=== PATIENT | female | born 1955 | race Caucasian/White ===

== ENCOUNTER 2018-09-22 14:12 | Emergency (ER) | payer SELFPAY ==
[2018-09-22] MEDS ORDERED: Ondansetron 4 MG/2 ML SDV IVPUSH ONE (14:42)
[2018-09-22] MEDS ORDERED: Sodium Chloride 0.9% 10 ML Syringe FLUSH PRN (14:42)
[2018-09-22] MEDS ORDERED: Sodium Chloride 0.9% 1,000 ML IV ONE ×2 (14:42→15:48)
--- NOTE | 2018-09-22 16:06 | EDM.PDOC ---
ED HPI GENERAL MEDICAL PROBLEM - General Chief Complaint: Gastrointestinal Problem Stated Complaint: CHEST PAIN Time Seen by Provider: 09/22/18 14:15 Source of Information: Reports: Patient, Family (daughter) History Limitations: Reports: Language Barrier - History of Present Illness INITIAL COMMENTS - FREE TEXT/NARRATIVE: 61-year-old female presents for evaluation and treatment of increased urinary frequency, nausea, dizziness and diarrhea. Patient does not speak any Serbian, a language barrier is present. Translation is obtained from her daughter as well as the translation service. Patient reports that she's been experiencing what she describes as air to the left ear and dizziness for several months. She has never been evaluated for this. She states she was prescribed antibiotics for the ear in [place] in April. She reports she's had multiple ear infections as a child. Denies any ear pain or headaches. Patient reports that she's been experiencing increased urinary frequency as of late. She is concerned she may have a urinary tract infection. Denies any dysuria. Patient also reports that she is also nauseated and has diarrhea. Estimates she' s had about 5 episodes of diarrhea per day. No vomiting. No chest pain, shortness of breath and only minor abdominal discomfort. She denies any blood in her stool.n someion. Previous abdominal surgeries include a cholecystectom and hysterectomy. Recent travel includes a have been in [place] recently. - Related Data Allergies Allergy/AdvReac Type Severity Reaction Status Date / Time No Known Allergies Allergy Verified 09/22/18 14:27 Home Meds: Home Meds Acido. 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 Denies: Ear Pain Respiratory: Denies: Shortness of Breath Cardiovascular: Denies: Chest Pain GI/Abdominal: Reports: Abdominal Pain (minor), Diarrhea, Nausea, Vomiting. Denies: Hematochezia, Melena : Reports: Frequency. Denies: Dysuria Neurological: Reports: Dizziness ED EXAM, GI/ABD - Physical Exam Exam: See Below Exam Limited By: No Limitations General Appearance: Alert, WD/WN, No Apparent Distress Ears: Other (right TM has scarring present; left TM is distorted, no landmarks present, TM is opaque) Nose: Normal Inspection Throat/Mouth: Normal Inspection, Normal Lips, Normal Oropharynx, Normal Voice, No Airway Compromise Respiratory/Chest: No Respiratory Distress, Lungs Clear, Normal Breath Sounds Cardiovascular: Normal Peripheral Pulses, Regular Rate, Rhythm, No Murmur GI/Abdominal Exam: Normal Bowel Sounds, Soft, Non-Tender, Other (scar to the RUQ from prior cholecystectomy) Neurological: Alert, Oriented, Normal Cognition Psychiatric: Normal Affect, Normal Mood Skin Exam: Warm, Dry, Normal Color EKG INTERPRETATION EKG Date: 09/22/18 Time: 14:18 Rhythm: NSR Rate (Beats/Min): 118 [place]: Normal P-Wave: Present QRS: Normal ST-T: Normal QT: Prolonged EKG Interpretation Comments: Sinus tachycardia 118 bpm. Left atrial hypertrophy. Mildly decreased voltage limb leads. QTc minimally prolonged at Qtc 478. Reviewed by myself and Dr. Del Cid. Course - Vital Signs Last Recorded V/S: Last Vital Signs Temp 96.9 F 09/22/18 14:21 Pulse 113 H 09/22/18 14:21 Resp 16 09/22/18 14:21 BP 169/91 H 09/22/18 14:21 Pulse Ox 97 09/22/18 14:21 - Orders/Labs/Meds Labs: Laboratory Tests 09/22/18 09/22/18 09/22/18 Range/Units 14:17 14:17 14:45 WBC 10.05 H (3.98-10.04) K/mm3 RBC 4.61 (3.98-5.22) M/mm3 Hgb 13.4 (11.2-15.7) gm/L Hct 40.8 (34.1-44.9) % MCV 88.5 (79.4-94.8) fl MCH 29.1 (25.6-32.2) pg MCHC 32.8 (32.2-35.5) g/dl RDW Std Deviation 41.1 (36.4-46.3) fL Plt Count 415 H (182-369) K/mm3 MPV 10.0 (9.4-12.3) fl Neut % (Auto) 52.4 (34.0-71.1) % Lymph % (Auto) 36.9 (19.3-51.7) % [place] % (Auto) 7.0 (4.7-12.5) % Eos % (Auto) 3.1 (0.7-5.8) Baso % (Auto) 0.3 (0.1-1.2) % Neut # (Auto) 5.27 (1.56-6.13) K/mm3 Lymph # (Auto) 3.71 (1.18-3.74) K/mm3 [place] # (Auto) 0.70 H (0.24-0.36) K/mm3 Eos # (Auto) 0.31 (0.04-0.36) K/mm3 Baso # (Auto) 0.03 (0.01-0.08) K/mm3 Sodium 141 (136-145) mEq/L Potassium 3.5 (3.5-5.1) mEq/L Chloride 104 (98-107) mEq/L Carbon Dioxide 24 (21-32) mEq/L Anion Gap 16.5 H (5-15) BUN 20 H (7-18) mg/dL Creatinine 0.7 (0.55-1.02) mg/dL Est Cr Clr Drug Dosing 59.09 mL/min Estimated GFR (MDRD) > 60 (>60) mL/min BUN/Creatinine Ratio 28.6 H (14-18) Glucose 129 H (80-115) mg/dL Calcium 10.0 (8.5-10.1) mg/dL Magnesium 1.7 L (1.8-2.4) mg/dl Total Bilirubin 0.3 (0.2-1.0) mg/dL AST 21 (15-37) U/L ALT 29 (14-59) U/L Alkaline Phosphatase 105 (46-116) U/L Total Protein 8.6 H (6.4-8.2) g/dl Albumin 3.9 (3.4-5.0) g/dl Globulin 4.7 gm/dL Albumin/Globulin Ratio 0.8 L (1-2) Urine Color Yellow (Yellow) Urine Appearance Clear (Clear) Urine pH 7.0 (5.0-8.0) Ur Specific [place] 1.020 (1.005-1.030) Urine Protein Trace H (Negative) Urine Glucose (UA) Negative (Negative) Urine Ketones Negative (Negative) Urine Occult Blood 2+ H (Negative) Urine Nitrite Negative (Negative) Urine Bilirubin Negative (Negative) Urine Urobilinogen 0.2 (0.2-1.0) Ur Leukocyte Esterase Trace H (Negative) Urine RBC 5-10 H (0-5) /hpf Urine WBC 0-5 (0-5) /hpf Ur Squamous Epith Cells 0-5 (0-5) /hpf Urine Bacteria Not seen (FEW) /hpf Urine Mucus Not seen (FEW) /hpf Meds: Medications Discontinued Medications Generic Name Dose Route Start Last Admin Trade Name Freq PRN Reason Stop Dose Admin Sodium Chloride 1,000 mls @ 999 mls/hr 09/22/18 14:42 09/22/18 14:57 Normal Saline IV 09/22/18 15:42 999 mls/hr ONETIME ONE Administration Sodium Chloride 1,000 mls @ 999 mls/hr 09/22/18 15:48 09/22/18 16:22 Normal Saline IV 09/22/18 16:48 999 mls/hr ONETIME ONE Administration Ondansetron HCl 4 mg 09/22/18 14:42 09/22/18 14:58 Zofran IVPUSH 09/22/18 14:43 4 mg ONETIME ONE Administration Sodium Chloride 10 ml 09/22/18 14:42 09/22/18 14:58 Saline Flush FLUSH 10 ml ASDIRECTED PRN Administration Keep Vein Open - Radiology Interpretation Free Text/Narrative:: CT temporal bones Technique: Multiple axial sections through the temporal bones were obtained. Reconstructed coronal and sagittal images were reviewed. Findings: Slightly thickened left tympanic membrane is seen. Attic is clear on both sides. Ossicular chain appears symmetric. No abnormal mineralization is seen around the semicircular canals or cochlea. Internal auditory canals is symmetric. Mastoid air cells appear clear. Impression: 1. Mild thickening of the left tympanic membrane most likely due to scar tissue. 2. CT study of the temporal bones is otherwise unremarkable. - Re-Assessments/Exams Free Text/Narrative Re-Assessment/Exam: 09/22/18 17:[address] Del Cid exam the patient's left ear due to questionable scarring vs cholestoma. Recommended CT to further evaluate. Discussed the labs, ekg and imaging with the patient and her daughter. Nausea and diarrhea felt to be viral GI bug. Recommend symptomatic care. Recommended follow-up with ENT for further evaluation of the left ear. No UTI found. Will discharge home, discharge instructions as documented. Departure - Departure Time of Disposition: 17:34 Disposition: Home, Self-Care 01 Condition: Fair Clinical Impression: Dizziness, Gastroenteritis - Discharge Information *PRESCRIPTION DRUG MONITORING PROGRAM REVIEWED*: No *COPY OF PRESCRIPTION DRUG MONITORING REPORT IN PATIENT JORGE ALBERTO: No Prescriptions: Meclizine [Antivert] 25 mg PO TID PRN #20 tab PRN Reason: Dizziness Ondansetron [Zofran ODT] 4 mg PO Q6H PRN #20 tab.dis PRN Reason: Nausea Instructions: Viral Gastroenteritis, Adult, [id number] Referrals: PCP,None [Primary Care Provider] - Alvaro Clements MD [Ordering Only Provider] - Marva Solares PA-C [Physician Director Of Public Relations] - Forms: ED Department Discharge Additional Instructions: Zofran 1 tab sublingual every 6-8 hours as needed for nausea. Make sure you are drinking plenty of fluids. Drink water, Gatorade or Powerade. Recommend a bland diet as tolerated. [place] diet recommendations include bread, rice, bananas, applesauce, toast etc. Meclizine 1 ta 3 times a day as needed for dizziness. Recommend following up with [facility] tro[facility] in [place] for further evaluation of swelling tympanic membrane. Recommend Dr. Clements call [phone] to schedule with him. Expect your symptoms to last the next few days. If they do not improve recommend follow-up with family medicine. Recommend Dr. lee or Deena Celaya at the [facility]. Call [phone] to schedule with one of these providers. Please return to the ER if your symptoms change or worsen.
--- NOTE | 2018-09-22 16:30 | CT ---
CT temporal bones Technique: Multiple axial sections through the temporal bones were obtained. Reconstructed coronal and sagittal images were reviewed. Findings: Slightly thickened left tympanic membrane is seen. Attic is clear on both sides. Ossicular chain appears symmetric. No abnormal mineralization is seen around the semicircular canals or cochlea. Internal auditory canals is symmetric. Mastoid air cells appear clear. Impression: 1. Mild thickening of the left tympanic membrane most likely due to scar tissue. 2. CT study of the temporal bones is otherwise unremarkable. Diagnostic code #3
== END 2018-09-22 18:05 | disposition home or self-care (01) ==
LOC: JD.ED 14:12
DX: K52.9 Noninfective gastroenteritis and colitis, unspecified (principal); R42 Dizziness and giddiness; E11.9 Type 2 diabetes mellitus without complications; I10 Essential (primary) hypertension; Z79.84 Long term (current) use of oral hypoglycemic drugs; Z79.899 Other long term (current) drug therapy
CPT/HCPCS: 36415; 70480; 80053; 81001; 83735; 85025; 93005; 96361; 96374; 99284; J2405; J7040; 70482-26; 93010

== ENCOUNTER 2018-10-25 14:21 | Emergency (ER) | payer MEDICAID, OTHER ==
--- NOTE | 2018-10-25 14:44 | EDM.PDOC ---
ED HPI GENERAL MEDICAL PROBLEM - General Chief Complaint: Eye Problems Stated Complaint: EYE SWOLLEN Time Seen by Provider: 10/25/18 14:40 Source of Information: Reports: Patient, Family (daughter whom acts as the jumpbasting facing baster. 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 There's been no purulent discharge or crusting. She does not speak [place] and her daughter is here to act as an jumpbasting facing baster. Patient hasn't had no previous right eye surgery. She has no glaucoma does not use any drops to the right eye. She has no recent cold or upper respiratory tract infection. No eye trauma. Does wear eyeglasses. She doesn't feel her visual acuity has changed. Feels uncomfortable sensation medial aspect of the right eye. Onset: Gradual (He was mildly erythematous yesterday but much worse today) Onset Date: 10/24/18 Duration: Hour(s):, Getting Worse Location: Reports: Face (Right eye erythema) Quality: Reports: Ache, Burning, Other (No significant pain.) Severity: Mild Improves with: Reports: None Worsens with: Reports: None Context: Reports: Other. 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) (None.) - Related Data Allergies Allergy/AdvReac Type Severity Reaction Status Date / Time No Known Allergies Allergy Verified 10/25/18 14:31 Home Meds: Home Meds Enalapril [Vasotec] 10 mg PO ASDIRECTED 09/22/18 [History] Losartan [Cozaar] 50 mg PO ASDIRECTED 09/22/18 [History] Meclizine [Antivert] 25 mg PO TID PRN #20 tab 09/22/18 [Rx] Ondansetron [Zofran ODT] 4 mg PO Q6H PRN #20 tab.dis 09/22/18 [Rx] hydroCHLOROthiazide [Hydrochlorothiazide] 25 mg PO ASDIRECTED 09/22/18 [History] metFORMIN [Glucophage] 850 mg PO ASDIRECTED 09/22/18 [History] Past Medical History - Past Health History Medical/Surgical History: Denies Medical/Surgical History Cardiovascular History: Reports: Hypertension (He is on 3 different antihypertensive medications.) 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: Endocrine/Metabolic History: Reports: Diabetes, Type II (Continued with diet and metformin.) - Past Surgical History GI Surgical History: Reports: Cholecystectomy Female Surgical History: Reports: Hysterectomy Other Female Surgeries/Procedures: "Bladder Surgery." Social & Family History - Tobacco Use Smoking Status *Q: Never Smoker Second Hand Smoke Exposure: No - Caffeine Use Caffeine Use: Reports: Coffee - Recreational Drug Use Recreational Drug Use: No - Living Situation & Occupation Living situation: Reports: Single Occupation: Unemployed ED ROS GENERAL - Review of Systems Review Of Systems: See Below Constitutional: Denies: Fever, Chills, Malaise, Weakness, Fatigue, Decreased Appetite, Weight Loss HEENT: Reports: Eye Pain, Glasses (Right eye redness with minimal discomfort). Denies: Eye Discharge Respiratory: Reports: No Symptoms Cardiovascular: Reports: Blood Pressure Problem (Chronic hypertension) Endocrine: Reports: Fatigue, Other GI/Abdominal: Reports: Constipation : Reports: Frequency Musculoskeletal: Reports: Joint Pain Skin: Reports: No Symptoms (Knees hips low back shoulders and neck at times) Neurological: Reports: No Symptoms Psychiatric: Reports: No Symptoms Hematologic/Lymphatic: Reports: No Symptoms ED EXAM GENERAL W FULL EYE - Physical Exam Exam: See Below Exam Limited By: No Limitations General Appearance: Alert, WD/WN, No Apparent Distress, Other (Right eye is obviously quite erythematous.) Eye Exam: Right Eye: Conjunctival Injection (The conjunctiva is severely erythematous and injected medially and appears to be a subconjunctival hemorrhage inferior to the right eye.), Normal Fundi (Normal anterior and posterior chambers.), Bilateral Eye: PERRL Eyelids: Bilateral: Normal Appearance Conjunctiva & Sclera: Right: Injected (Medially and inferiorly.), Subconjuctival Hemorrhage (Mostly medially and inferiorly. Lateral conjunctiva is clear) Cornea Exam: Bilateral: Normal Appearance Extraocular Movements: Bilateral: Intact Pupils: Normal Accommodation Pupillary Size: Bilateral: 5 mm Pupillary Reaction: Bilateral: Brisk Anterior Chamber: Bilateral: Normal Appearance Posterior Chamber: Right: Normal Funduscopic Ears: Normal TMs Throat/Mouth: Normal Inspection, Normal Lips, Normal Oropharynx Head: Atraumatic, Normocephalic Neck: Normal Inspection, Supple, Non-Tender, Full Range of Motion. No: Lymphadenopathy (L), Lymphadenopathy (R) Respiratory/Chest: No Respiratory Distress, Lungs Clear, Normal Breath Sounds, No Accessory Muscle Use Cardiovascular: Normal Peripheral Pulses, Regular Rate, Rhythm, No Edema, No Murmur, No Rub Course - Vital Signs Last Recorded V/S: Last Vital Signs Temp 36.5 C 10/25/18 14:29 Pulse 115 H 10/25/18 14:29 Resp 15 10/25/18 14:29 BP 155/75 H 10/25/18 14:29 Pulse Ox 100 10/25/18 14:29 - Radiology Interpretation Free Text/Narrative:: 62-year-old female presents to the ED with her daughter who acts as jumpbasting facing baster as the patient speaks only Amharic. She presents with a gradually worsening right hand I over the last 24-36 hours. No known eye injury. Patient has had no previous eye problems. She does not have any glaucoma or does not use any eyedrops. No previous right eye surgery. She denies having any cold symptoms at present. The eye was not crusted shut or showing any purulent discharge. On examination there is significant conjunctival injection of the medial aspect of the conjunctiva and a subconjunctival hemorrhage along the inferior aspect of the eye traveling laterally. To palpation there is no evidence of glaucoma. Pupils are brisk and accommodation is normal. Funduscopy normal. Anterior chamber is normal. There appears to be a viral conjunctivitis and I think from rubbing she's developed a mild subconjunctival hematoma as well. Treatment will be with Zaditor drops 2 drops to the right eye every 6-8 hours as needed to relieve discomfort. Daughter devised it'll take about 10 days for the redness to dissipate and will go through all the colors of a bruise. Follow-up with industrial service technician if any further problems occur. If it is adenovirus infection starting and is likely to involve the other eye within the next week. No other signs of an upper respiratory tract infection. Departure - Departure Time of Disposition: 14:40 Disposition: Home, Self-Care 01 Condition: Fair Clinical Impression: Subconjunctival hematoma Qualifiers: Laterality: right Qualified Code(s): H11.31 - Conjunctival hemorrhage, right eye Conjunctivitis Qualifiers: Conjunctivitis type: acute Acute conjunctivitis type: viral - Discharge Information *PRESCRIPTION DRUG MONITORING PROGRAM REVIEWED*: Not Applicable *COPY OF PRESCRIPTION DRUG MONITORING REPORT IN PATIENT JORGE ALBERTO: Not Applicable Instructions: Bacterial Conjunctivitis, [id number], Subconjunctival Hemorrhage Referrals: PCP,None [Primary Care Provider] - Forms: ED Department Discharge Additional Instructions: Evaluation the emergency room today in regards to development of left red eye particularly on the inside or medial aspect of the eye over the last 24-36 hours. No associated signs of infection such as pus. There is significant congestion of the blood vessels on the surface of the conjunctiva medial aspect of the left eye. I suspect this is viral in origin. There is a small subconjunctival hemorrhage which means bleeding under the conjunctiva on the inner aspect of the eye and along the inferior portion of the eye. Spoke to the colors of a bruise and disappear on its own over the next 10 days. There are no signs of serious problems with GI with the retina being normal and the cornea normal. Intraocular pressure is normal as well. Treatment is adequate toward drops 2 drops to the right eye every 6-8 hours as needed to reduce irritation and redness. Usually should not use the drops longer than 5 days. If any further problems develop follow-up with industrial service technician for eye doctor.
== END 2018-10-25 15:00 | disposition home or self-care (01) ==
LOC: JD.ED 14:21
DX: H11.31 Conjunctival hemorrhage, right eye (principal); H10.89 Other conjunctivitis; B97.89 Other viral agents as the cause of diseases classified elsewhere; I10 Essential (primary) hypertension; E11.9 Type 2 diabetes mellitus without complications; Z90.49 Acquired absence of other specified parts of digestive tract; Z79.899 Other long term (current) drug therapy; Z79.84 Long term (current) use of oral hypoglycemic drugs
CPT/HCPCS: 99283

== ENCOUNTER 2019-03-30 21:39 | Emergency (ER) | payer SELFPAY ==
[2019-03-30] MEDS ORDERED: FLU Vacc QS2019-20(6MOS+)/PF 60 MCG/0.5 ML SYRINGE IM ONE (22:15)
--- NOTE | 2019-03-30 22:29 | EDM.PDOC ---
ED HPI GENERAL MEDICAL PROBLEM - General Chief Complaint: Cardiovascular Problem Stated Complaint: HIGH BLOOD PRESSURE Time Seen by Provider: 03/30/19 21:58 Source of Information: Reports: Patient, Family History Limitations: Reports: Language Barrier (Family member is interpreting for her) - History of Present Illness INITIAL COMMENTS - FREE TEXT/NARRATIVE: The patient presents with dizziness, high blood pressure, left arm and upper back discomfort. This started tonight. Her BP was as high as 175 systolic. That is better now. She says she has not felt good for a few days. She has been urinating more. She does not have a fever, chills, or cough. She has no chest pain or shortness of breath. She has no abdominal pain, nausea or vomiting. She has no headache with it. She has no numbness or weakness. She does have a history of hypertension and she is on medication for that. Onset: Gradual Duration: Day(s): Location: Reports: Upper Extremity, Left Quality: Reports: Ache Severity: Mild Improves with: Reports: None Worsens with: Reports: None Associated Symptoms: Denies: Chest Pain, Cough, Fever/Chills, Headaches, Nausea/ Vomiting, Shortness of Breath Left Arm Pain Score (Numeric/FACES): 3 - Related Data Allergies Allergy/AdvReac Type Severity Reaction Status Date / Time No Known Allergies Allergy Verified 03/30/19 21:57 Home Meds: Home Meds Enalapril [Vasotec] 10 mg PO BID 09/22/18 [History] Losartan [Cozaar] 50 mg PO BID 09/22/18 [History] Meclizine [Antivert] 25 mg PO TID PRN #20 tab 09/22/18 [Rx] Ondansetron [Zofran ODT] 4 mg PO Q6H PRN #20 tab.dis 09/22/18 [Rx] hydroCHLOROthiazide [Hydrochlorothiazide] 25 mg PO DAILY 09/22/18 [History] metFORMIN [Glucophage] 850 mg PO BID 09/22/18 [History] Past Medical History - Past Health History Medical/Surgical History: Denies Medical/Surgical History Cardiovascular History: Reports: High Cholesterol, Hypertension 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: Endocrine/Metabolic History: Reports: Diabetes, Type II - Past Surgical History GI Surgical History: Reports: Cholecystectomy Female Surgical History: Reports: Section, Hysterectomy Other Female Surgeries/Procedures: "Bladder Surgery." Social & Family History - Family History Family Medical History: Noncontributory - Tobacco Use Smoking Status *Q: Never Smoker - Caffeine Use Caffeine Use: Reports: Coffee - Recreational Drug Use Recreational Drug Use: No - Living Situation & Occupation Living situation: Reports: Single Occupation: Unemployed ED ROS GENERAL - Review of Systems Review Of Systems: See Below Constitutional: Reports: No Symptoms HEENT: Reports: No Symptoms Respiratory: Reports: No Symptoms Cardiovascular: Reports: No Symptoms Endocrine: Reports: No Symptoms GI/Abdominal: Reports: No Symptoms : Reports: No Symptoms Musculoskeletal: Reports: Other (Left arm ache and back ache) Neurological: Reports: Dizziness ED EXAM, GENERAL - Physical Exam Exam: See Below Exam Limited By: No Limitations General Appearance: Alert, No Apparent Distress Ears: Normal External Exam Nose: Normal Inspection Head: Atraumatic, Normocephalic Neck: Normal Inspection Respiratory/Chest: No Respiratory Distress, Lungs Clear, Normal Breath Sounds Cardiovascular: Regular Rate, Rhythm, No Edema, No Murmur GI/Abdominal: Soft, Non-Tender, No Organomegaly, No Mass Back Exam: Normal Inspection Extremities: Normal Inspection Course - Vital Signs Last Recorded V/S: Last Vital Signs Temp 98.1 F 03/30/19 21:53 Pulse 120 H 03/30/19 21:53 Resp 18 03/30/19 21:53 BP 164/83 H 03/30/19 21:53 Pulse Ox 97 03/30/19 21:53 - Orders/Labs/Meds Orders: Active Orders 24 hr Category Date Time Status Cardiac Monitoring [RC] . DIRECTED Care 03/30/19 22:16 Active EKG Documentation Completion [RC] STAT Care 03/30/19 22:16 Active Influenza Vaccine Charge [RC] .DISCHARGE Care 03/30/19 22:02 Active Chest 2V [CR] Stat Exams 03/30/19 22:16 Taken Pharmacy to Dose - InFluenza V [Pharmacy to Dose - Med 03/30/19 22:01 Pending InFluenza Vaccine] 1 each IM ONETIME ONE Medication Orders Influenza Virus Vaccine (Pharmacy To Dose - Influenza Vaccine) 1 each IM ONETIME ONE Stop: 03/30/19 22:02 Labs: Laboratory Tests 03/30/19 03/30/19 03/30/19 Range/Units 22:25 22:25 23:46 WBC 9.87 (3.98-10.04) K/mm3 RBC 4.32 (3.98-5.22) M/mm3 Hgb 12.6 (11.2-15.7) gm/dl Hct 38.4 (34.1-44.9) % MCV 88.9 (79.4-94.8) fl MCH 29.2 (25.6-32.2) pg MCHC 32.8 (32.2-35.5) g/dl RDW Std Deviation 41.6 (36.4-46.3) fL Plt Count 351 (182-369) K/mm3 MPV 10.1 (9.4-12.3) fl Neut % (Auto) 55.5 (34.0-71.1) % Lymph % (Auto) 31.1 (19.3-51.7) % [place] % (Auto) 8.1 (4.7-12.5) % Eos % (Auto) 4.7 (0.7-5.8) Baso % (Auto) 0.3 (0.1-1.2) % Neut # (Auto) 5.48 (1.56-6.13) K/mm3 Lymph # (Auto) 3.07 (1.18-3.74) K/mm3 [place] # (Auto) 0.80 H (0.24-0.36) K/mm3 Eos # (Auto) 0.46 H (0.04-0.36) K/mm3 Baso # (Auto) 0.03 (0.01-0.08) K/mm3 Sodium 141 (136-145) mEq/L Potassium 3.4 L (3.5-5.1) mEq/L Chloride 105 (98-107) mEq/L Carbon Dioxide 25 (21-32) mEq/L Anion Gap 14.4 (5-15) BUN 15 (7-18) mg/dL Creatinine 0.7 (0.55-1.02) mg/dL Est Cr Clr Drug Dosing TNP Estimated GFR (MDRD) > 60 (>60) mL/min BUN/Creatinine Ratio 21.4 H (14-18) Glucose 133 H (80-115) mg/dL Calcium 9.6 (8.5-10.1) mg/dL Total Bilirubin 0.3 (0.2-1.0) mg/dL AST 24 (15-37) U/L ALT 33 (14-59) U/L Alkaline Phosphatase 104 (46-116) U/L Troponin I < 0.017 (0.00-0.056) ng/mL Total Protein 8.0 (6.4-8.2) g/dl Albumin 3.7 (3.4-5.0) g/dl Globulin 4.3 gm/dL Albumin/Globulin Ratio 0.9 L (1-2) Urine Color Yellow (Yellow) Urine Appearance Clear (Clear) Urine pH 6.5 (5.0-8.0) Ur Specific [place] 1.015 (1.005-1.030) Urine Protein Negative (Negative) Urine Glucose (UA) Negative (Negative) Urine Ketones Negative (Negative) Urine Occult Blood 1+ H (Negative) Urine Nitrite Negative (Negative) Urine Bilirubin Negative (Negative) Urine Urobilinogen 0.2 (0.2-1.0) Ur Leukocyte Esterase 1+ H (Negative) Urine RBC 0-5 (0-5) /hpf Urine WBC 5-10 H (0-5) /hpf Ur Squamous Epith Cells 5-10 H (0-5) /hpf Urine Bacteria Few (FEW) /hpf Urine Mucus Not seen (FEW) /hpf Meds: Medications Generic Name Dose Route Start Last Admin Trade Name Freq PRN Reason Stop Dose Admin Influenza Virus Vaccine 1 each 03/30/19 22:01 Pharmacy To Dose - Influenza Vaccine IM 03/30/19 22:02 ONETIME ONE Discontinued Medications Generic Name Dose Route Start Last Admin Trade Name Freq PRN Reason Stop Dose Admin Influenza Virus Vaccine 60 mcg 03/30/19 22:15 Fluzone Quad [id number] Syringe IM 03/30/19 22:16 .ONCE ONE - Re-Assessments/Exams Free Text/Narrative Re-Assessment/Exam: 03/30/19 22:30 I ordered an EKG, CXR, labs and a UA. 03/31/19 00:44 Her CXR looks good. Her EKG shows a NSR with no acute changes. Her CBC looks good. Her glucose was a little elevated at 133. Her troponin is negative. Her UA shows no UTI. I will have her continue her medicines and I will have her follow up with Dr Slater. Departure - Departure Time of Disposition: 12:50 Disposition: Home, Self-Care 01 Condition: Good Clinical Impression: Left arm pain Hypertension Qualifiers: Hypertension type: essential hypertension Qualified Code(s): I10 - Essential ( primary) hypertension Referrals: PCP,None [Primary Care Provider] - Tova Slater MD [Physician] - 1 Week Forms: ED Department Discharge Additional Instructions: Take your medications as prescribed. Follow up with Dr Slater with a week. Please return if you are worse. - My Orders Last 24 Hours: My Active Orders 03/30/19 22:01 Pharmacy to Dose - InFluenza V [Pharmacy to Dose - InFluenza Vaccine] 1 each IM ONETIME ONE 03/30/19 22:02 Influenza Vaccine Charge [RC] .DISCHARGE 03/30/19 22:16 Cardiac Monitoring [RC] . DIRECTED EKG Documentation Completion [RC] STAT Chest 2V [CR] Stat - Assessment/Plan Last 24 Hours: My Active Orders 03/30/19 22:01 Pharmacy to Dose - InFluenza V [Pharmacy to Dose - InFluenza Vaccine] 1 each IM ONETIME ONE 03/30/19 22:02 Influenza Vaccine Charge [RC] .DISCHARGE 03/30/19 22:16 Cardiac Monitoring [RC] . DIRECTED EKG Documentation Completion [RC] STAT Chest 2V [CR] Stat
--- NOTE | 2019-03-31 07:20 | CR ---
Chest: Two views of the chest were obtained. Comparison: No prior chest x-ray is available. Heart size is normal. Upper mediastinum is within normal limits. Lungs are clear with no acute parenchymal change. Minimal degenerative change is scattered within the spine. Surgical clips are seen within the upper abdomen. Impression: 1. Nothing acute is seen on two-view chest x-ray. Diagnostic code #2
== END 2019-03-31 01:00 | disposition home or self-care (01) ==
LOC: JD.ED 21:39
DX: I10 Essential (primary) hypertension (principal); M79.602 Pain in left arm; Z23 Encounter for immunization; E11.9 Type 2 diabetes mellitus without complications; E78.00 Pure hypercholesterolemia, unspecified; Z79.899 Other long term (current) drug therapy; Z79.84 Long term (current) use of oral hypoglycemic drugs
CPT/HCPCS: 36415; 71046; 71046-26; 80053; 81001; 84484; 85025; 90471; 90686; 93005; 93010; 99283; 99284-25; G0008

== ENCOUNTER 2019-06-02 09:25 | Emergency (ER) | payer SELFPAY ==
--- NOTE | 2019-06-02 12:06 | EDM.PDOC ---
ED HPI GENERAL MEDICAL PROBLEM - General Chief Complaint: Genitourinary Problem Stated Complaint: HIGH BP Time Seen by Provider: 06/02/19 09:47 Source of Information: Reports: Patient, Family, RN Notes Reviewed - History of Present Illness INITIAL COMMENTS - FREE TEXT/NARRATIVE: 63-year-old lady has been brought in by other family members for evaluation of voiding dysuria, urgency, frequency. On over the past few days. No fever chills nausea or vomiting. There has been some mild generalized abdominal discomfort as well Abdominal Pain Score (Numeric/FACES): 5 - Related Data Allergies Allergy/AdvReac Type Severity Reaction Status Date / Time No Known Allergies Allergy Verified 06/02/19 09:44 Home Meds: Home Meds Enalapril [Vasotec] 10 mg PO BID 09/22/18 [History] Losartan [Cozaar] 50 mg PO BID 09/22/18 [History] Meclizine [Antivert] 25 mg PO TID PRN #20 tab 09/22/18 [Rx] Ondansetron [Zofran ODT] 4 mg PO Q6H PRN #20 tab.dis 09/22/18 [Rx] hydroCHLOROthiazide [Hydrochlorothiazide] 25 mg PO DAILY 09/22/18 [History] metFORMIN [Glucophage] 850 mg PO BID 09/22/18 [History] Nitrofurantoin Monohyd/M-Cryst [Macrobid 100 mg Capsule] 100 mg PO BID #10 capsule 06/02/19 [Rx] Past Medical History - Past Health History Medical/Surgical History: Denies Medical/Surgical History HEENT History: Reports: Impaired Vision, Other (See Below) Other HEENT History: wears eyeglasses. 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 History: Reports: Fracture Psychiatric History: Reports: Anxiety Endocrine/Metabolic History: Reports: Diabetes, Type II - Infectious Disease History Infectious Disease History: Reports: Chicken Pox - Past Surgical History GI Surgical History: Reports: Cholecystectomy Female Surgical History: Reports: Section, Hysterectomy Other Female Surgeries/Procedures: "Bladder Surgery." Social & Family History - Family History Family Medical History: Noncontributory - Tobacco Use Smoking Status *Q: Never Smoker Second Hand Smoke Exposure: No - Caffeine Use Caffeine Use: Reports: None - Recreational Drug Use Recreational Drug Use: No - Living Situation & Occupation Living situation: Reports: Single Occupation: Unemployed ED ROS GENERAL - Review of Systems Review Of Systems: See Below Constitutional: Denies: Fever, Chills, Diaphoresis HEENT: Reports: No Symptoms Respiratory: Denies: Shortness of Breath Cardiovascular: Denies: Chest Pain GI/Abdominal: Reports: Abdominal Pain. Denies: Diarrhea, Nausea, Vomiting : Reports: Dysuria, Frequency, Urgency Musculoskeletal: Denies: Back Pain Skin: Reports: No Symptoms Neurological: Reports: No Symptoms ED EXAM, RENAL/ - Physical Exam Exam: See Below General Appearance: Alert, No Apparent Distress Eye Exam: Bilateral Eye: PERRL Throat/Mouth: Normal Inspection, Normal Oropharynx Head: Atraumatic Neck: Supple Respiratory/Chest: No Respiratory Distress, Lungs Clear, Normal Breath Sounds Cardiovascular: Regular Rate, Rhythm GI/Abdominal: Soft, Non-Tender Extremities: Normal Inspection, Normal Range of Motion Neurological: Alert, Oriented, No Motor/Sensory Deficits Skin Exam: Warm, Dry, Normal Color Course - Vital Signs Last Recorded V/S: Last Vital Signs Temp 97.1 F 06/02/19 09:35 Pulse 108 H 06/02/19 09:35 Resp 16 06/02/19 09:35 BP 152/85 H 06/02/19 09:35 Pulse Ox 95 06/02/19 09:35 - Orders/Labs/Meds Orders: Active Orders 24 hr Category Date Time Status CULTURE URINE [RM] Stat Lab 06/02/19 09:55 Received Labs: Laboratory Tests 06/02/19 06/02/19 06/02/19 Range/Units 09:55 10:31 10:31 WBC 7.28 (3.98-10.04) K/mm3 RBC 4.34 (3.98-5.22) M/mm3 Hgb 12.7 (11.2-15.7) gm/dl Hct 39.3 (34.1-44.9) % MCV 90.6 (79.4-94.8) fl MCH 29.3 (25.6-32.2) pg MCHC 32.3 (32.2-35.5) g/dl RDW Std Deviation 41.3 (36.4-46.3) fL Plt Count 399 H (182-369) K/mm3 MPV 10.2 (9.4-12.3) fl Neut % (Auto) 61.5 (34.0-71.1) % Lymph % (Auto) 27.6 (19.3-51.7) % [place] % (Auto) 7.1 (4.7-12.5) % Eos % (Auto) 3.3 (0.7-5.8) Baso % (Auto) 0.4 (0.1-1.2) % Neut # (Auto) 4.47 (1.56-6.13) K/mm3 Lymph # (Auto) 2.01 (1.18-3.74) K/mm3 [place] # (Auto) 0.52 H (0.24-0.36) K/mm3 Eos # (Auto) 0.24 (0.04-0.36) K/mm3 Baso # (Auto) 0.03 (0.01-0.08) K/mm3 Sodium 137 (136-145) mEq/L Potassium 3.5 (3.5-5.1) mEq/L Chloride 103 (98-107) mEq/L Carbon Dioxide 23 (21-32) mEq/L Anion Gap 14.5 (5-15) BUN 15 (7-18) mg/dL Creatinine 0.8 (0.55-1.02) mg/dL Est Cr Clr Drug Dosing 51.03 mL/min Estimated GFR (MDRD) > 60 (>60) mL/min BUN/Creatinine Ratio 18.8 H (14-18) Glucose 96 (80-115) mg/dL Calcium 9.6 (8.5-10.1) mg/dL Total Bilirubin 0.4 (0.2-1.0) mg/dL AST 17 (15-37) U/L ALT 29 (14-59) U/L Alkaline Phosphatase 98 (46-116) U/L Total Protein 7.7 (6.4-8.2) g/dl Albumin 3.6 (3.4-5.0) g/dl Globulin 4.1 gm/dL Albumin/Globulin Ratio 0.9 L (1-2) Urine Color Yellow (Yellow) Urine Appearance Clear (Clear) Urine pH 6.5 (5.0-8.0) Ur Specific [place] 1.020 (1.005-1.030) Urine Protein Negative (Negative) Urine Glucose (UA) Negative (Negative) Urine Ketones Negative (Negative) Urine Occult Blood 1+ H (Negative) Urine Nitrite Negative (Negative) Urine Bilirubin Negative (Negative) Urine Urobilinogen 0.2 (0.2-1.0) Ur Leukocyte Esterase 1+ H (Negative) Urine RBC 0-5 (0-5) /hpf Urine WBC 0-5 (0-5) /hpf Ur Epithelial Cells 0-5 (0-5) /hpf Urine Bacteria Not seen (FEW) /hpf Urine Mucus Not seen (FEW) /hpf Departure - Departure Time of Disposition: 12:05 Disposition: Home, Self-Care 01 Condition: Fair Clinical Impression: UTI, Urinary tract infectious disease - Discharge Information Prescriptions: Nitrofurantoin Monohyd/M-Cryst [Macrobid 100 mg Capsule] 100 mg PO BID #10 capsule Referrals: PCP,None [Primary Care Provider] - Forms: ED Department Discharge Additional Instructions: Drink plenty of water to maintain hydration, Macrobid antibiotic 100 mg twice daily for 5 days or until gone. Prescription has been sent electronically to [facility]. Follow-up clinic in about 4-5 days for recheck. Call for appointment. Return to ED as needed if symptoms worsening in any way. Sepsis Event Note - Evaluation Sepsis Screening Result: No Definite Risk - Focused Exam Vital Signs: Vital Signs Temp Pulse Resp BP Pulse Ox 06/02/19 09:35 97.1 F 108 H 16 152/85 H 95 Date Exam was Performed: 06/02/19 Time Exam was Performed: 12:15 - My Orders Last 24 Hours: My Active Orders 06/02/19 09:55 CULTURE URINE [RM] Stat - Assessment/Plan Last 24 Hours: My Active Orders 06/02/19 09:55 CULTURE URINE [RM] Stat
== END 2019-06-02 13:00 | disposition home or self-care (01) ==
LOC: JD.ED 09:25
DX: N39.0 Urinary tract infection, site not specified (principal); B96.20 Unspecified Escherichia coli [E. coli] as the cause of diseases classified elsewhere; I10 Essential (primary) hypertension; E11.9 Type 2 diabetes mellitus without complications; Z79.899 Other long term (current) drug therapy; Z79.84 Long term (current) use of oral hypoglycemic drugs; Z90.49 Acquired absence of other specified parts of digestive tract
CPT/HCPCS: 36415; 80053; 81001; 85025; 87086; 87088; 87186; 99282; 99283

== ENCOUNTER 2022-02-17 13:44 | Emergency (ER) | payer SELFPAY | END 2022-02-17 15:00 | disposition home or self-care (01) | LOC: JD.ED 13:44 | DX: H66.002 Acute suppurative otitis media without spontaneous rupture of ear drum, left ear (principal); I10 Essential (primary) hypertension; E11.9 Type 2 diabetes mellitus without complications; Z79.899 Other long term (current) drug therapy; Z88.0 Allergy status to penicillin; Z79.84 Long term (current) use of oral hypoglycemic drugs; Z90.49 Acquired absence of other specified parts of digestive tract | CPT/HCPCS: 99282 ==

== ENCOUNTER 2024-05-27 08:57 | Emergency (ER) | payer SELFPAY ==
[2024-05-27 10:38] LABS: APPEARANCE,URINE CLEAR (Clear); BILIRUBIN,URINE NEGATIVE (Negative); COLOR,URINE YELLOW (Yellow); GLUCOSE,URINE NEGATIVE (Negative); KETONES,URINE NEGATIVE (Negative); LEUKOCYTE ESTERASE,URINE TRACE (Negative); NITRITE,URINE NEGATIVE (Negative); OCCULT BLOOD,URINE 2+ (Negative); PROTEIN,URINE NEGATIVE (Negative); UROBILINOGEN,URINE 0.2 (0.2-1.0)
[2024-05-27 11:40] LABS: BACTERIA,URINE FEW /hpf (FEW); EPITHELIAL CELLS,URINE 0-5 /hpf (0-5); MUCUS,URINE FEW /hpf (FEW); RBC,URINE 0-5 /hpf (0-5); WBC,URINE 0-5 /hpf (0-5)
== END 2024-05-27 11:45 | disposition home or self-care (01) ==
LOC: JD.ED 08:57
DX: N39.0 Urinary tract infection, site not specified (principal); H66.002 Acute suppurative otitis media without spontaneous rupture of ear drum, left ear; I10 Essential (primary) hypertension; E78.00 Pure hypercholesterolemia, unspecified; E11.9 Type 2 diabetes mellitus without complications; Z79.899 Other long term (current) drug therapy; Z79.84 Long term (current) use of oral hypoglycemic drugs; Z88.0 Allergy status to penicillin
CPT/HCPCS: 81001; 87086; 87428-QW; 99283; 99284